=== PATIENT | male | born 1995 | race Two or more races ===

== ENCOUNTER 2018-07-19 23:49 | Emergency (ER) | payer BC ==
[~2018-07-19] VITALS: Ht 182.9 cm; Wt 102.1 kg
--- NOTE | 2018-07-20 00:16 | NUR ---
Dr. Tejada at bedside for MSE.
[2018-07-20] MEDS ORDERED: LORAZEPAM 2 MG/1 ML VIAL IV ONE ×2 (00:30→01:45)
[2018-07-20] MEDS ORDERED: LORAZEPAM 2 MG/1 ML VIAL ONE ×2 (00:34→01:36)
--- NOTE | 2018-07-20 00:35 | NUR ---
Xray at bedside.
[2018-07-20 00:42] LABS: BASOPHILS % (AUTO) 0.6 % (0.0-2.0); CARBON DIOXIDE 21 mmol/L (21-32); CHLORIDE 106 mmol/L (98-107); CREATININE 1.2 mg/dL (0.6-1.3); EOSINOPHILS # (AUTO) 0.1 K/uL (0.0-0.7); EOSINOPHILS % (AUTO) 0.9 % (0.0-7.0); GLUCOSE 154 mg/dL (74-106); HEMATOCRIT 49.8 % (36.7-47.1); HEMOGLOBIN 16.8 g/dL (12.5-16.3); LYMPHOCYTES # (AUTO) 2.9 K/uL (20.0-40.0); MEAN CORPUSCULAR HEMOGLOBIN 30.1 uug (23.8-33.4); MEAN CORPUSCULAR HGB CONC 34 g/dL (32.5-36.3); MONOCYTES # (AUTO) 0.7 K/uL (2.0-10.0); MONOCYTES % (AUTO) 8.4 % (0.0-11.0); NEUTROPHILS # (AUTO) 4.8 K/uL (1.8-8.9); NEUTROPHILS % (AUTO) 56.1 % (38.5-71.5); PLATELET COUNT (AUTO) 270 K/uL (152-348); POTASSIUM 3.3 mmol/L (3.5-5.1); RED BLOOD CELL COUNT(AUTO) 5.59 MIL/uL (4.06-5.63); UREA NITROGEN, BLOOD 8 mg/dL (7-18); WHITE BLOOD COUNT (AUTO) 8.6 K/uL (3.6-10.2)
[2018-07-20 00:48] LABS: ALANINE AMINOTRANSFERASE 60 U/L (16-63); ALKALINE PHOSPHATASE 124 U/L (50-136); ASPARTATE AMINOTRANSFERASE 75 U/L (15-37); BILIRUBIN,DIRECT < 0.1 mg/dL (0.0-0.2); BILIRUBIN,TOTAL 0.2 mg/dL (0.2-1.0); TOTAL PROTEIN, SERUM 7.4 g/dL (6.4-8.2)
[2018-07-20] MEDS ORDERED: IV NORMAL SALINE 1000 ML BAG IV ONE (01:15)
[2018-07-20] MEDS ORDERED: POTASSIUM CHLORIDE 20 MEQ TAB.PRT.SR ONE (02:10)
[2018-07-20] MEDS ORDERED: POTASSIUM CHLORIDE 20 MEQ TAB.PRT.SR PO ONE (02:15)
--- NOTE | 2018-07-20 04:02 | NUR ---
Patient discharged to home in stable conditon. Written and verbal after care instructions given. Patient verbalizes understanding of instructions. Pt ambulated out of ER with steady gait, no acute signs of distress, VSS, all belongings taken, IV site discontinued.
[2018-07-20 04:04] VITALS: BP 152/98
== END 2018-07-20 04:04 | disposition home or self-care (01) ==
LOC: ER 23:52
DX: F15.93 Other stimulant use, unspecified with withdrawal (principal); R07.9 Chest pain, unspecified; F17.290 Nicotine dependence, other tobacco product, uncomplicated; F14.10 Cocaine abuse, uncomplicated
CPT/HCPCS: 36415; 71045; 80048; 80076; 85025; 93005; 96361; 96374; 96376; 99284; 99406; J2060 ×2; A4663; J7030

== ENCOUNTER 2018-07-21 00:05 | Emergency (ER) | payer BC ==
[~2018-07-21] VITALS: Ht 182.9 cm; Wt 102.1 kg
--- NOTE | 2018-07-21 00:16 | NUR ---
Patient arrive at the ER with chief complaint of HTN. Patient reported BP as high as 171/120. Patient was seen here yesterday for same complaint. Patient also reported N/V x4 on 07/20/18. Patient AAOx4. In no acute distress. Denies any SOB. No concern. Bed on lock position. Fall precaution per protocol.
--- NOTE | 2018-07-21 00:21 | NUR ---
NOMI PRADO at bedside for MSE.
[2018-07-21] MEDS ORDERED: LORAZEPAM 0.5 MG TABLET PO ONE (00:30)
[2018-07-21] MEDS ORDERED: LORAZEPAM 0.5 MG TABLET ONE (00:35)
[2018-07-21 00:40] LABS: BASOPHILS # (AUTO) 0.1 K/uL (0.0-8.0); BASOPHILS % (AUTO) 0.7 % (0.0-2.0); EOSINOPHILS # (AUTO) 0.1 K/uL (0.0-0.7); EOSINOPHILS % (AUTO) 1.2 % (0.0-7.0); HEMATOCRIT 50.9 % (36.7-47.1); HEMOGLOBIN 17.4 g/dL (12.5-16.3); LYMPHOCYTES # (AUTO) 3.8 K/uL (20.0-40.0); LYMPHOCYTES % (AUTO) 39.2 % (20.5-51.5); MEAN CORPUSCULAR HEMOGLOBIN 30.2 uug (23.8-33.4); MEAN CORPUSCULAR HGB CONC 34 g/dL (32.5-36.3); MEAN CORPUSCULAR VOLUME 88.2 fL (73.0-96.2); MONOCYTES # (AUTO) 0.9 K/uL (2.0-10.0); MONOCYTES % (AUTO) 9.6 % (0.0-11.0); NEUTROPHILS # (AUTO) 4.8 K/uL (1.8-8.9); NEUTROPHILS % (AUTO) 49.3 % (38.5-71.5); PLATELET COUNT (AUTO) 293 K/uL (152-348); RED BLOOD CELL COUNT(AUTO) 5.77 MIL/uL (4.06-5.63); WHITE BLOOD COUNT (AUTO) 9.7 K/uL (3.6-10.2)
--- NOTE | 2018-07-21 00:43 | NUR ---
NOMI PRADO AT BEDSIDE.
[2018-07-21 00:44] LABS: CREATININE 1.2 mg/dL (0.6-1.3); POTASSIUM 3.3 mmol/L (3.5-5.1)
[2018-07-21] MEDS: CLONIDINE HCL 0.1 MG TABLET PO ONE ×2 (00:45→00:52)
--- NOTE | 2018-07-21 00:59 | NUR ---
NOMI PRADO AT BEDSIDE.
[2018-07-21] MEDS ORDERED: POTASSIUM CHLORIDE 20 MEQ TAB.PRT.SR ONE (01:53)
[2018-07-21] MEDS ORDERED: POTASSIUM CHLORIDE 20 MEQ TAB.PRT.SR PO ONE (02:00)
[2018-07-21] MEDS ORDERED: CLONIDINE HCL 0.1 MG TABLET ONE (02:04)
--- NOTE | 2018-07-21 02:04 | NUR ---
Patient discharged to home in stable conditon. Written and verbal after care instructions given. Patient verbalizes understanding of instructions. Patient ambulated out of the ER with steady gait. All belongings with patient.
[2018-07-21 02:05] VITALS: BP 164/108
== END 2018-07-21 02:06 | disposition home or self-care (01) ==
LOC: ER 00:10
DX: F15.93 Other stimulant use, unspecified with withdrawal (principal); F41.9 Anxiety disorder, unspecified; I10 Essential (primary) hypertension; E87.6 Hypokalemia; F12.10 Cannabis abuse, uncomplicated; F17.200 Nicotine dependence, unspecified, uncomplicated
CPT/HCPCS: 36415; 70030-TC; 85025; 93005; A4663